=== PATIENT | male | born 1930 | race Caucasian/White ===

== ENCOUNTER 2021-01-11 19:23 | Inpatient (IN) | payer MEDICARE ==
[~2021-01-11] VITALS: Ht 190.5 cm; Wt 101.2 kg
--- NOTE | 2021-01-11 19:35 | NUR ---
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 PT'S BREATHING IS EVEN AND UNLABORED, SATURATION 97% ON ROOM AIR. PT SEEN AND EXAMINED BY DR AGUILAR. PT ATTACHED TO MONITOR AND PULSE OX. WILL CONTINUE TO MONITOR AND CARRY OUT MD ORDERS.
[2021-01-11] MEDS ORDERED: IV NS 0.9% 1,000 ML BAG IV ONE ×3 (20:00→21:00)
[2021-01-11 20:06] LABS: BASOPHILS # (AUTO) 0.1 K/uL (0.0-0.2); BASOPHILS % (AUTO) 0.3 % (0.0-2.0); EOSINOPHILS % (AUTO) 0.1 % (0.0-6.0); HEMATOCRIT 46 % (39-51); HEMOGLOBIN 14.8 g/dL (13.5-17.5); LYMPHOCYTES # (AUTO) 0.3 K/uL (0.8-4.8); MEAN CORPUSCULAR HGB CONC 32 g/dl (31.0-36.0); MEAN CORPUSCULAR VOLUME 92 fL (80-96); MONOCYTES # (AUTO) 0.3 K/uL (0.1-1.30); MONOCYTES % (AUTO) 1.3 % (2.0-12.0); NEUTROPHILS # (AUTO) 23.6 K/uL (1.8-8.9); NEUTROPHILS % (AUTO) 97.3 % (43.0-81.0); PLATELET COUNT (AUTO) 463 K/uL (150-450); RED BLOOD CELL COUNT(AUTO) 4.99 MIL/uL (4.5-6.0); WHITE BLOOD COUNT (AUTO) 24.3 K/uL (4.3-11.0)
[2021-01-11] MEDS ORDERED: CEFTRIAXONE 1GM BAG (ER ONLY) 0 ML IV ONE (20:25)
[2021-01-11] MEDS ORDERED: WATER FOR INJECTION,STERILE 10 ML ONE (20:27)
[2021-01-11] MEDS ORDERED: CEFTAZIDIME 1 G VIAL ONE (20:27)
[2021-01-11 20:30] LABS: ALANINE AMINOTRANSFERASE 34 U/L (12-78); ALBUMIN 2.3 g/dL (3.4-5.0); ALKALINE PHOSPHATASE 133 U/L (46-116); ASPARTATE AMINOTRANSFERASE 18 U/L (15-37); BILIRUBIN,DIRECT 0.2 mg/dL (0.0-0.2); BILIRUBIN,TOTAL 0.5 mg/dL (0.2-1.0); CARBON DIOXIDE 12 mmol/L (21-32); CHLORIDE 94 mmol/L (98-107); CREATININE 4.2 mg/dL (0.6-1.3); SODIUM SERUM 130 mmol/L (136-145); TOTAL PROTEIN, SERUM 7.2 g/dL (6.4-8.2); UREA NITROGEN, BLOOD 69 mg/dL (7-18)
[2021-01-11] MEDS ORDERED: CEFTAZIDIME 1 G in IV D5W 50 ML IV ONE (20:30)
--- NOTE | 2021-01-11 20:30 | NUR ---
CXR TAKEN AT BEDSIDE.
[2021-01-11 20:31] LABS: GLUCOSE 552 mg/dL (74-106); POTASSIUM 6.6 mmol/L (3.5-5.1)
--- NOTE | 2021-01-11 20:35 | NUR ---
COVID SWAB COLLECTED AND SENT TO LAB
[2021-01-11] MEDS ORDERED: LIDOCAINE 2% JEL UROJET 10 ML MM ONE (20:39)
[2021-01-11] MEDS ORDERED: SODIUM BICARBONATE SYR 50 MEQ/50 ML DISP.SYRIN ONE (20:59)
[2021-01-11] MEDS ORDERED: SODIUM POLYSTYRENE SULFONATE 15 G/60 ML BOTTLE ONE (20:59)
[2021-01-11] MEDS ORDERED: SODIUM POLYSTYRENE SULFONATE 15 G/60 ML BOTTLE PO ONE (21:00)
[2021-01-11] MEDS ORDERED: INSULIN REGULAR, HUMAN 100 UNIT/ML 10 ML VIAL ONE (21:00)
[2021-01-11] MEDS ORDERED: INSULIN REGULAR, HUMAN 100 UNIT/ML 10 ML VIAL IV ONE (21:00)
[2021-01-11] MEDS ORDERED: SODIUM BICARBONATE SYR 50 MEQ/50 ML DISP.SYRIN IV ONE (21:00)
--- NOTE | 2021-01-11 21:00 | NUR ---
ORELLANA CATHETER 16FR INSERTED, URINE DRAINED IMMEDIATELY, NOTED 300 ML CLOUDY, YELLOW OUTPUT
--- NOTE | 2021-01-11 21:01 | NUR ---
URINE COLLECTED AND SENT TO LAB
--- NOTE | 2021-01-11 21:27 | NUR ---
DR. TIWARI PAGED PER ER ORDER.
[2021-01-11 21:50] LABS: BILIRUBIN,URINE NEGATIVE (NEGATIVE); COLOR,URINE YELLOW (YELLOW); LEUKOCYTE ESTERASE ,URINE MODERATE (NEGATIVE); NITRITE, URINE NEGATIVE (NEGATIVE); PROTEIN,URINE 30 mg/dl (NEGATIVE); UGLUCOSE >=1000 mg/dL (NEGATIVE); UROBILINOGEN,URINE 0.2 EU/dL (0.2)
[2021-01-11 21:55] LABS: RBC,URINE 51-80 /HPF (0-2); WBC,URINE TOO NUMEROUS TO COUN /HPF (0-3)
[2021-01-11 21:56] LABS: BACTERIA,URINE Moderate /HPF (None Seen); SQUAMOUS EPITHELIAL CELL,UR Few /HPF (None Seen)
--- NOTE | 2021-01-11 22:00 | NUR ---
ESTABLISHED IV LINE AT RAC 20G, AND RHAND 20G. PATENT AND FLUSHING WELL. Addendum: 01/11/21 at 2205 by SIERRA CORRECT TIME IV LINE ESTABLISHED: 1939
--- NOTE | 2021-01-11 22:05 | NUR ---
ICU 259
[2021-01-11] MEDS ORDERED: ONDANSETRON HCL/PF 4 MG/2 ML VIAL IVP PRN (22:30)
[2021-01-11] MEDS ORDERED: Z GUARD REMEDY 2 OZ OINT TP PRN (22:30)
[2021-01-11] MEDS ORDERED: MAG HYDROX/AL HYDROX/SIMETH 30 ML UDC PO PRN (22:30)
[2021-01-11] MEDS ORDERED: ZOLPIDEM TARTRATE 5 MG TABLET PO PRN (22:30)
[2021-01-11] MEDS ORDERED: MAGNESIUM HYDROXIDE 30 ML UDC PO PRN (22:30)
[2021-01-11] MEDS ORDERED: ACETAMINOPHEN 325 MG TABLET PO PRN (22:30)
[2021-01-11] MEDS ORDERED: DEXTROSE 50%-WATER 50 ML DISP.SYRIN IV PRN (22:30)
--- NOTE | 2021-01-11 22:35 | NUR ---
TELEPHONE CALL TO PT'S SON KENDALL ADAMS REGARDING PT'S HOME EMDICATIONS, STATED HE WILL SEND THEM OVER. PROVIDED NUMBER TO SEND IT TO
[2021-01-11] MEDS ORDERED: CEFTRIAXONE 1 G VIAL ONE (22:38)
--- NOTE | 2021-01-11 22:40 | NUR ---
REPORT GIVEN TO SURGICAL ASSIST RENEE FOR JUDY
--- NOTE | 2021-01-11 22:45 | NUR ---
RN/ICU-ADMITTED THIS 89 Y/O MALE FROM ER BY SILVIA, ACCOMPANIED BY ER STAFF PER ACLS PROTOCOL. NURSING FOCUS:INFECTION R/T DIAGNOSIS OF SEPSIS ,UTI. ROUTINE ICU ADMISSION CARE INITIATED.PT. AWAKE, ALERT, EXPRESSIVE OF NEEDS. PT. IS VERY HARD OF HEARING. DENIES PAIN OR DISCOMFORT. EKG ST W/ HR-126/MIN. HR-136/89. EUPNEIC. ON ROOM AIR, SATS-95%. AFEBRILE.PT. IS A FULL CODE.
--- NOTE | 2021-01-11 22:45 | NUR ---
PT TRANSFERRED TO ICU ROOM 259 ACCOMPANIED BY RN AND EMT IN STABLE CONDITION. LATEST VS HR 107, BP 104/56, O2 SAT 96% ON ROOM AIR.
[2021-01-11 23:00] VITALS: BP 136/89
[2021-01-11 23:04] LABS: ALBUMIN 1.8 g/dL (3.4-5.0); BILIRUBIN,DIRECT 0.1 mg/dL (0.0-0.2); BILIRUBIN,TOTAL 0.3 mg/dL (0.2-1.0); TOTAL PROTEIN, SERUM 5.7 g/dL (6.4-8.2)
[2021-01-11] MEDS: IV NS 0.9% 1,000 ML IV SCH (23:10)
[2021-01-11] MEDS: CEFTRIAXONE 1 G in IV D5W 50 ML IV SCH (23:10)
[2021-01-12] VITALS (26 sets, daily range): BP systolic 76–144; BP diastolic 48–86
--- NOTE | 2021-01-12 | NUR ---
RN/ICU-PT. REMAINS STABLE, NOT IN ANY PAIN OR DISTRESS.REPORT GIVEN TO ERVIN COLLINS.
--- NOTE | 2021-01-12 01:02 | NUR ---
RECEIVED PATIENT IN BED, ALERT AND ORIENTED X3, ABLE TO MAKE NEEDS KNOWN. HAD ONE LARGE BM AT THIS TIME. KEPT CLEAN AND DRY. TURNED AND REPOSITIONED. CALL LIGHT WITHIN REACH. ALL NEEDS ANTICIPATED.
[2021-01-12 02:14] LABS: BASOPHILS # (AUTO) 0.1 K/uL (0.0-0.2); BASOPHILS % (AUTO) 0.6 % (0.0-2.0); EOSINOPHILS % (AUTO) 0.1 % (0.0-6.0); HEMATOCRIT 37 % (39-51); HEMOGLOBIN 12.3 g/dL (13.5-17.5); LYMPHOCYTES # (AUTO) 0.4 K/uL (0.8-4.8); LYMPHOCYTES % (AUTO) 2.1 % (20.0-44.0); MEAN CORPUSCULAR HGB CONC 34 g/dl (31.0-36.0); MEAN CORPUSCULAR VOLUME 90 fL (80-96); NEUTROPHILS # (AUTO) 17.9 K/uL (1.8-8.9); NEUTROPHILS % (AUTO) 92.2 % (43.0-81.0); PLATELET COUNT (AUTO) 331 K/uL (150-450); RED BLOOD CELL COUNT(AUTO) 4.08 MIL/uL (4.5-6.0); WHITE BLOOD COUNT (AUTO) 19.4 K/uL (4.3-11.0)
[2021-01-12 02:27] LABS: CALCIUM, SERUM 7.7 mg/dL (8.5-10.1); CARBON DIOXIDE 21 mmol/L (21-32); CHLORIDE 103 mmol/L (98-107); CREATININE 3.8 mg/dL (0.6-1.3); MAGNESIUM 2.4 mg/dL (1.8-2.4); PHOSPHORUS 4.2 mg/dL (2.5-4.9); SODIUM SERUM 136 mmol/L (136-145); UREA NITROGEN, BLOOD 70 mg/dL (7-18)
[2021-01-12 02:31] LABS: CHOLESTEROL 99 mg/dL (<200); HDL CHOLESTEROL 15 mg/dL (40-60); LDL 54 mg/dL (0-99); TRIGLYCERIDES 144 mg/dL (30-150)
[2021-01-12] MEDS ORDERED: METF-440 PO (02:36)
[2021-01-12] MEDS ORDERED: METO25TA4 PO (02:36)
[2021-01-12] MEDS ORDERED: EMPA25TA PO (02:36)
[2021-01-12] MEDS ORDERED: LORA10TA68 PO (02:36)
[2021-01-12] MEDS ORDERED: CEPH500T PO (02:36)
[2021-01-12 03:01] LABS: GLUCOSE 395 mg/dL (74-106)
[2021-01-12 03:19] LABS: BAND % (MANUAL) 6 % (0.0-5.0); BASOPHILS % (MANUAL) 0 % (0.0-2.0); EOSINOPHILS % (MANUAL) 0 % (0-4); LYMPHOCYTES % (MANUAL) 2 % (16-48); MONOCYTES % (MANUAL) 4 % (0-11.0); NEUTROPHILS % (MANUAL) 88 (42-76)
--- NOTE | 2021-01-12 05:42 | NUR ---
NOTIFIED DR. TIWARI LAB GLUCOSE 395, LACTIC ACID 2.3, TROPONIN .357, PROCAL 45.28, AND POTASSIUM 6.0, WITH NO NEW ORDERS, TO CONTINUE CURRENT PLAN OF CARE.
--- NOTE | 2021-01-12 07:13 | NUR ---
RN NOTE PATIENT IN BED RESTING. ON ROOM AIR, NO SOB NOTED. ALL NEEDS ATTENDED PROMPTLY. ORELLANA CATH OUTPUT OF 810CC HEMATURIA WITH CLOTS. TURNED AND REPOSITIONED. BED LOCKED AND IN LOWEST POSITION. CALL LIGHT WITHIN REACH. ENDORSED TO AM SHIFT.
--- NOTE | 2021-01-12 07:30 | NUR ---
PUBLIC SPEAKING TEACHER OPENING NOTES Patient received in bed on room air with 02 saturation of 99%. Patient did not c/o pain or discomfort. No s/s of distress. Verduzco cath in place and noted with hematuria. Fluids encouraged as bruno. IV fluids running at 100 cc/hour to right ac. Will continue to monitor. Call light with in reach.
[2021-01-12] MEDS: INSULIN REGULAR, HUMAN 100 UNIT/ML 3 ML VIAL SQ PRN ×4 (07:46→21:28)
[2021-01-12] MEDS: BLOOD SUGAR DIAGNOSTIC 1 EACH STRIP VI SCH ×4 (07:49→21:28)
[2021-01-12] MEDS: IV NS 0.9% 1,000 ML IV SCH ×2 (08:42→18:50)
--- NOTE | 2021-01-12 09:00 | NUR ---
Patient seen by Dr Starr. ABG done and results relayed to .
[2021-01-12 09:47] LABS: ABG BASE EXCESS -2.7 mmol/L; ABG OXYGEN SATURATION 97.4 % (92.0-98.5); ABG PH 7.448 (7.350-7.450); ABG PO2 90.1 mmHg (75.0-100.0); AaDO2 23.7 mmHg; COHb 0.3 % (0.5-1.5); MetHb 0.2 % (0.0-1.5); O2Hb 96.9 % (94.0-97.0); SITE, ABG Right Radial; VENT MODE, BG ROOM AIR
[2021-01-12] MEDS ORDERED: SODIUM POLYSTYRENE SULFONATE 15 G/60 ML BOTTLE PO ONE (10:30)
[2021-01-12] MEDS: HEPARIN SODIUM, PORCINE 5000 UNITS/1 ML VIAL SQ SCH ×2 (11:11→21:26)
[2021-01-12 11:29] LABS: CALCIUM, SERUM 7.4 mg/dL (8.5-10.1); CARBON DIOXIDE 24 mmol/L (21-32); CHLORIDE 104 mmol/L (98-107); CREATININE 3.1 mg/dL (0.6-1.3); POTASSIUM 4.9 mmol/L (3.5-5.1); SODIUM SERUM 137 mmol/L (136-145); UREA NITROGEN, BLOOD 62 mg/dL (7-18)
[2021-01-12] MEDS ORDERED: Calcium Gluconate 1GM/10ML 4.65 MEQ in IV D5W 50 ML IV ONE (11:30)
[2021-01-12 11:42] LABS: GLUCOSE 357 mg/dL (74-106)
[2021-01-12 11:48] LABS: PROSTATE SPECIFIC ANTIGEN SCR 8.87 ng/mL (0.00-4.00)
[2021-01-12] MEDS ORDERED: MAG HYDROX/AL HYDROX/SIMETH 30 ML UDC PO PRN (17:30)
--- NOTE | 2021-01-12 19:40 | NUR ---
METAL FINISH INSPECTOR OPENING NOTE Patient received in bed, A/O X3-4 on room air with 02 saturation of 99%. Patient denies pain or discomfort. Verduzco cath in place draining to gravity with noted hematuria. IV fluids running at 100 ml/hour through (R) AC 20G, patent and flushed. Sinus tachycardia on telemonitoring. Per morning shift RN, echo to possibly be completed tonight or tomorrow morning. No acute distress noted at this time.
[2021-01-12] MEDS: INSULIN GLARGINE, 100 UNIT/ML CARTRIDGE SQ SCH (21:27)
--- NOTE | 2021-01-12 21:40 | NUR ---
RN NOTE POC GLUCOSE LEVEL TAKEN, 178 MG/DL, 3 UNITS REGULAR INSULIN GIVEN PER SLIDING SCALE
[2021-01-12] MEDS: CEFTRIAXONE 1 G in IV D5W 50 ML IV SCH (23:13)
[2021-01-13] VITALS (14 sets, daily range): BP systolic 122–169; BP diastolic 54–113
[2021-01-13 02:04] LABS: BASOPHILS # (AUTO) 0.2 K/uL (0.0-0.2); EOSINOPHILS % (AUTO) 2.7 % (0.0-6.0); HEMATOCRIT 41 % (39-51); HEMOGLOBIN 13.5 g/dL (13.5-17.5); LYMPHOCYTES # (AUTO) 0.8 K/uL (0.8-4.8); LYMPHOCYTES % (AUTO) 5.5 % (20.0-44.0); MEAN CORPUSCULAR HGB CONC 33 g/dl (31.0-36.0); MEAN CORPUSCULAR VOLUME 89 fL (80-96); MONOCYTES # (AUTO) 0.9 K/uL (0.1-1.30); MONOCYTES % (AUTO) 6.4 % (2.0-12.0); NEUTROPHILS # (AUTO) 12.4 K/uL (1.8-8.9); NEUTROPHILS % (AUTO) 84.4 % (43.0-81.0); PLATELET COUNT (AUTO) 393 K/uL (150-450); RED BLOOD CELL COUNT(AUTO) 4.55 MIL/uL (4.5-6.0); WHITE BLOOD COUNT (AUTO) 14.7 K/uL (4.3-11.0)
[2021-01-13 02:37] LABS: CALCIUM, SERUM 8.2 mg/dL (8.5-10.1); CARBON DIOXIDE 24 mmol/L (21-32); CHLORIDE 106 mmol/L (98-107); CREATININE 2.5 mg/dL (0.6-1.3); GLUCOSE 196 mg/dL (74-106); PHOSPHORUS 3.4 mg/dL (2.5-4.9); POTASSIUM 4.9 mmol/L (3.5-5.1); SODIUM SERUM 140 mmol/L (136-145); UREA NITROGEN, BLOOD 49 mg/dL (7-18)
[2021-01-13] MEDS: IV NS 0.9% 1,000 ML IV SCH ×2 (04:36→16:17)
--- NOTE | 2021-01-13 07:16 | NUR ---
CORD CUTTER CLOSING NOTE Patient in bed, A/O X3-4 on room air with 02 saturation of 98%. Patient denies pain or discomfort. Verduzco cath in place draining to gravity with pink tinged clear urine. IV fluids running at 100 ml/hour through (R) AC 20G, patent and flushed. Sinus tachycardia on telemonitoring. All orders and medications administered through shift. Pt kept clean and dry. No acute distress noted at this time. Endorsed to morning shift RN
[2021-01-13] MEDS: BLOOD SUGAR DIAGNOSTIC 1 EACH STRIP VI SCH ×4 (07:28→21:44)
--- NOTE | 2021-01-13 07:30 | NUR ---
TIMBER GIRDLER OPENING NOTES Patient received in bed on room air with 02 saturation of 96%.Patient noted to be sinus tachy on cardiac rehab nurse but free of any s/sx. Patient did not c/o pain or discomfort. No s/s of distress. Verduzco cath in place and noted with clear yellow urine after gag writer flushed after receiving report. Fluids encouraged as bruno. Iv to right ac noted to be leaking upon flushing. IV fluids to left wrist running at 100 cc/hour. HOB kept elevated. DANYELL Fagan made aware regarding patient's bp readings with no new orders at this time. Will continue to monitor. Call light with in reach. Bed is in lowest and locked position.
[2021-01-13] MEDS: INSULIN REGULAR, HUMAN 100 UNIT/ML 3 ML VIAL SQ PRN ×3 (07:31→16:38)
[2021-01-13] MEDS: HEPARIN SODIUM, PORCINE 5000 UNITS/1 ML VIAL SQ SCH (09:19)
--- NOTE | 2021-01-13 10:02 | NUR ---
patient recieved to room 101 from icu skin w/d color good resp unlabored no sob noted telemetry shows ST 130'S no sob noted call light with in reach patient encouraged use of call light to make all needs known will continue to assess and evaluate
--- NOTE | 2021-01-13 10:02 | NUR ---
Patient transferred to TELE floor with tele monitor on bed side. Report given to charge nurse. Patient in stable condition with no s/s of respiratory distress. No c/o pain or discomfort. Verduzco cath intact and hanging to gravity with sediments but improvement noted from yesterday. Patient left in good stable condition.
--- NOTE | 2021-01-13 12:00 | NUR ---
vitals taken and recorded set up for lunch tray with eaten good call light with in reach
[2021-01-13] MEDS ORDERED: AMIODARONE 150 MG in IV D5W 100 ML IV ONE (14:30)
[2021-01-13] MEDS ORDERED: AMIODARONE 900 MG in IV D5W 482 ML IV PRN (14:30)
[2021-01-13] MEDS: AMIODARONE 450 MG in IV D5W 241 ML IV PRN ×2 (15:07→21:19)
--- NOTE | 2021-01-13 15:07 | NUR ---
ammidarone drip started at 1mg/hr after given bolus as ordered will continue to assess and evaluate
[2021-01-13] MEDS: METOPROLOL TARTRATE 25 MG TABLET PO SCH ×2 (16:15→21:11)
[2021-01-13] MEDS: APIXABAN 2.5 MG TABLET PO SCH ×2 (16:17→21:12)
--- NOTE | 2021-01-13 17:00 | NUR ---
no signs of distress noted call light with in reach
--- NOTE | 2021-01-13 18:00 | NUR ---
condition unchanged from previous assessment will continue to assess and evaluate still amiodarone drip at 1mg/hr with no signs of redness or swelling noted call light with in reach hutson catheter draining well to gravity
--- NOTE | 2021-01-13 20:00 | NUR ---
Ngozi rn notes Patient received in bed a/ox3 ,pts noted with hard of hearing. On room air with 02 saturation of 98%.Patient noted to be sinus rhytm -75 on cardiac technician but free of any s/sx. no sob no distress noted no pain or discomfort. Verduzco cath in place and noted with clear yellow urine output. Fluids encouraged as bruno. Iv to left fa and left wrist intact and patent IV fluids to left wrist running at 100 cc/hour. HOB kept elevated. on amiodarone drip received at 1mcg /kg/hr continue to monitor infusing well Call light with in reach. Bed is in lowest and locked position.v/s stable afebrile .all needs attended too , will continue to monitor pts.
--- NOTE | 2021-01-13 21:00 | NUR ---
BRITTANY RN NOTES AMIODARONE DRIP TITRATED TO 0.5 MCG /KG/HR ORDERED , INFUSING WELL. NO SOB NO DISTRESS NOTED.WILL CONTINUE TO MONITOR.
[2021-01-13] MEDS: INSULIN GLARGINE, 100 UNIT/ML CARTRIDGE SQ SCH (21:42)
[2021-01-13] MEDS: *INSULIN REGULAR(HUMULIN R)HUM 100 UNIT/ML VIAL SQ PRN (21:44)
--- NOTE | 2021-01-13 22:00 | NUR ---
BRITTANY RN NOTES BLOOD SUGAR OF 190 MG/DL 22 UNITS LANTUS GIVEN ORDERED AND 3 UNITS OF REGULAR INSULIN GIVEN PER SLIDING SCALE.WILL CHECK BLOOD SUGAR AGAIN IN AM.
[2021-01-13] MEDS: CEFTRIAXONE 1 G in IV D5W 50 ML IV SCH (22:02)
[2021-01-14] VITALS: BP 133/81
[2021-01-14] MEDS: IV NS 0.9% 1,000 ML IV SCH ×3 (00:41→20:27)
[2021-01-14 04:00] VITALS: BP 120/76
[2021-01-14 06:30] LABS: BASOPHILS # (AUTO) 0.1 K/uL (0.0-0.2); BASOPHILS % (AUTO) 0.6 % (0.0-2.0); EOSINOPHILS % (AUTO) 3.8 % (0.0-6.0); HEMATOCRIT 38 % (39-51); HEMOGLOBIN 12.5 g/dL (13.5-17.5); LYMPHOCYTES # (AUTO) 1.1 K/uL (0.8-4.8); LYMPHOCYTES % (AUTO) 10.2 % (20.0-44.0); MEAN CORPUSCULAR HGB CONC 33 g/dl (31.0-36.0); MEAN CORPUSCULAR VOLUME 90 fL (80-96); MONOCYTES % (AUTO) 9.5 % (2.0-12.0); NEUTROPHILS # (AUTO) 7.9 K/uL (1.8-8.9); NEUTROPHILS % (AUTO) 75.9 % (43.0-81.0); PLATELET COUNT (AUTO) 367 K/uL (150-450); RED BLOOD CELL COUNT(AUTO) 4.21 MIL/uL (4.5-6.0); WHITE BLOOD COUNT (AUTO) 10.3 K/uL (4.3-11.0)
[2021-01-14 06:43] LABS: CALCIUM, SERUM 7.7 mg/dL (8.5-10.1); CARBON DIOXIDE 21 mmol/L (21-32); CHLORIDE 106 mmol/L (98-107); CREATININE 1.6 mg/dL (0.6-1.3); GLUCOSE 182 mg/dL (74-106); SODIUM SERUM 137 mmol/L (136-145); UREA NITROGEN, BLOOD 31 mg/dL (7-18)
--- NOTE | 2021-01-14 06:49 | NUR ---
BRITTANY RN NOTES Patient in bed, A/O X3-4 on room air with 02 saturation of 98%. Patient denies pain or discomfort. Verduzco cath in place draining to gravity clear urine. IV fluids NS running at 100 ml/hour through LEFT WRIST 20G, patent and flushed. Sinus RHYTHM on telemonitoring.ON AMIO DRIP AT 0.5 MCG /KG /HR CONNECTED TO LEF FA DUE UNTILL 3PM . All orders and medications administered through shift. Pt kept clean and dry. No acute distress noted at this time. Endorsed to morning shift RN
--- NOTE | 2021-01-14 07:30 | NUR ---
RN Opening Notes Received patient in bed A/O x 3, patient is awake and alert, TEJON but is able to verbalize needs. Patient's breathing is even and unlabored, no SOB, on r/a. Patient is on tele monitor, VS within acceptable range and denies pain at this time. Verduzco cath is intact and patent draining kia urine with sediments. IV access on Left Forearm and Left Wrist intact and patent. Patient is currently infusing Amiodarone 0.5mg/min . Call light within reach, bed at lowest position, locked with bed alarm on. Will continue to monitor patient.
[2021-01-14 08:00] VITALS: BP 138/71
[2021-01-14] MEDS: APIXABAN 2.5 MG TABLET PO SCH ×2 (08:19→21:30)
[2021-01-14] MEDS: BLOOD SUGAR DIAGNOSTIC 1 EACH STRIP VI SCH ×4 (08:19→21:31)
[2021-01-14] MEDS: INSULIN REGULAR, HUMAN 100 UNIT/ML 3 ML VIAL SQ PRN ×3 (08:21→17:35)
[2021-01-14] MEDS: METOPROLOL TARTRATE 25 MG TABLET PO SCH ×2 (08:22→21:33)
--- NOTE | 2021-01-14 09:30 | NUR ---
RN NOTES DUE MEDS GIVEN
[2021-01-14 12:00] VITALS: BP 99/72
[2021-01-14 16:00] VITALS: BP 133/76
--- NOTE | 2021-01-14 18:50 | NUR ---
RN Notes Patient comfortably resting in bed, A/O x3 awake and able to verbalize need. Patient's VS stable, no SOB on room air. Patient denies any pain/discomfort. Verduzco cath patent and intact draining kia urine and drainage bag below level of bladder. IVF infusing as ordered NS 0.9% 100ml/hr. IV access on Left arm intact and patent. All meds given as ordered. Call light within reach, bed locked and in lowest position, bed alarm on. Will endorse to incoming RN for continuity of care.
[2021-01-14 20:00] VITALS: BP 126/62
--- NOTE | 2021-01-14 20:00 | NUR ---
RN NOTE RECEIVED PT IN BED, ALERT AND ORIENTED X 4. PT WITH HEARING AID, DENIES ANY PAIN OR SOB. NO DISTRESS NOTED. IV ON LFA, PT COMPLAINED OF PAIN WHEN FLUSHED, SLIGHT REDNESS WERE NOTED, REMOVED, INSERTED NEW IV LINE 22G ON LFA. ORELLANA IN PLACE, DRAINING YELLOW URINE. ALL SAFETY IN PLACE PER PROTOCOL. WILL CONTINUE TO MONITOR.
[2021-01-14] MEDS: INSULIN GLARGINE, 100 UNIT/ML CARTRIDGE SQ SCH (21:30)
[2021-01-14] MEDS: *INSULIN REGULAR(HUMULIN R)HUM 100 UNIT/ML VIAL SQ PRN (21:32)
[2021-01-14] MEDS: TAMSULOSIN 0.4 MG CAP.SR.24H PO SCH (21:33)
[2021-01-14] MEDS: CEFTRIAXONE 1 G in IV D5W 50 ML IV SCH (21:42)
[2021-01-15] VITALS: BP 125/70
[2021-01-15 04:00] VITALS: BP 133/67
[2021-01-15 06:47] LABS: BASOPHILS # (AUTO) 0.1 K/uL (0.0-0.2); BASOPHILS % (AUTO) 0.7 % (0.0-2.0); EOSINOPHILS % (AUTO) 4.2 % (0.0-6.0); HEMATOCRIT 37 % (39-51); HEMOGLOBIN 12.6 g/dL (13.5-17.5); LYMPHOCYTES # (AUTO) 0.9 K/uL (0.8-4.8); LYMPHOCYTES % (AUTO) 10.8 % (20.0-44.0); MEAN CORPUSCULAR HGB CONC 34 g/dl (31.0-36.0); MEAN CORPUSCULAR VOLUME 89 fL (80-96); MONOCYTES # (AUTO) 0.7 K/uL (0.1-1.30); MONOCYTES % (AUTO) 8.9 % (2.0-12.0); NEUTROPHILS # (AUTO) 6.3 K/uL (1.8-8.9); NEUTROPHILS % (AUTO) 75.4 % (43.0-81.0); PLATELET COUNT (AUTO) 394 K/uL (150-450); RED BLOOD CELL COUNT(AUTO) 4.16 MIL/uL (4.5-6.0); WHITE BLOOD COUNT (AUTO) 8.4 K/uL (4.3-11.0)
[2021-01-15] MEDS: IV NS 0.9% 1,000 ML IV SCH ×2 (07:10→16:34)
--- NOTE | 2021-01-15 07:15 | NUR ---
rn closing notes pt in bed, sleeping arouses easily. not significant changes noted. pt able to make needs known, tolerating room air. no distress noted. denies pain or sob. hutson indwelling well with clear yellow urine. continue on ivf ns at 100ml/hr. all safety measures maintained. will endorse to next shift nurse for mackenzie.
--- NOTE | 2021-01-15 07:20 | NUR ---
RN Opening Notes Received patient in bed A/O x 3, patient is awake and alert, PECHANGA but is able to verbalize needs. Patient's breathing is even and unlabored, no SOB, on r/a. Patient is on tele monitor, VS within acceptable range and denies pain at this time. Verduzco cath is intact and patent draining kia urine with sediments. IV access on Left Forearm intact and patent. Call light within reach, bed at lowest position, locked with bed alarm on. Will continue to monitor patient.
[2021-01-15 07:37] LABS: CALCIUM, SERUM 7.8 mg/dL (8.5-10.1); CARBON DIOXIDE 25 mmol/L (21-32); CHLORIDE 108 mmol/L (98-107); CREATININE 1.5 mg/dL (0.6-1.3); GLUCOSE 168 mg/dL (74-106); MAGNESIUM 1.7 mg/dL (1.8-2.4); PHOSPHORUS 3.4 mg/dL (2.5-4.9); POTASSIUM 3.9 mmol/L (3.5-5.1); SODIUM SERUM 141 mmol/L (136-145); UREA NITROGEN, BLOOD 27 mg/dL (7-18)
[2021-01-15 08:00] VITALS: BP 149/83
[2021-01-15] MEDS: BLOOD SUGAR DIAGNOSTIC 1 EACH STRIP VI SCH ×4 (08:24→22:00)
[2021-01-15] MEDS: APIXABAN 2.5 MG TABLET PO SCH ×2 (08:25→21:22)
[2021-01-15] MEDS: METOPROLOL TARTRATE 25 MG TABLET PO SCH ×2 (08:26→21:56)
[2021-01-15] MEDS: *INSULIN REGULAR(HUMULIN R)HUM 100 UNIT/ML VIAL SQ PRN ×2 (08:28→22:04)
[2021-01-15] MEDS ORDERED: METOPROLOL SUCCINATE 25 MG TAB.SR.24H PO SCH (09:00)
--- NOTE | 2021-01-15 09:30 | NUR ---
RN NOTES DUE MEDS GIVEN
[2021-01-15] MEDS ORDERED: Magnesium 1GM/D5W 100ML PREMIX 100 ML IV SCH (11:00)
[2021-01-15 12:00] VITALS: BP 127/78
[2021-01-15] MEDS: INSULIN REGULAR, HUMAN 100 UNIT/ML 3 ML VIAL SQ PRN (12:40)
--- NOTE | 2021-01-15 13:04 | NUR ---
RN Notes Clarified Azithromycin dose with Pharmacist. Per Pharmacist Azithromycin dose is only 500 mg daily and to disregard 1130 am dose and to give 1230 pm dose only. Administered meds as ordered
[2021-01-15 16:00] VITALS: BP 119/53
--- NOTE | 2021-01-15 18:46 | NUR ---
RN Closing Notes Patient comfortably resting in bed, A/O x3 awake and able to verbalize need. Patient's VS stable, no SOB on room air. Patient denies any pain/discomfort. Verduzco cath patent and intact draining kia urine and drainage bag below level of bladder. IVF infusing as ordered NS 0.9% 100ml/hr. IV access on right arm intact and patent. All meds given as ordered. Call light within reach, bed locked and in lowest position, bed alarm on. Will endorse to incoming RN for continuity of care.
--- NOTE | 2021-01-15 19:20 | NUR ---
Patient is A&Ox4. No signs of distress. Is able to verbalize needs. Patient is heard of hearing -hearing aid at bedside. ST on monitor around 105bpm. Notified patient of COVID - PCR result and that he will be moved to [facility] shortly.
[2021-01-15 20:00] VITALS: BP 121/57
--- NOTE | 2021-01-15 20:00 | NUR ---
PATIENT OBSERVATION ASSISTANT OPENING NOTE RECEIVED PT AWAKE IN BED. A/0 X4. PT IS STABLE ON ROOM AIR. NO SOB OR S/S OF RESPIRATORY DISTRESS NOTED. PT ON EXTERNAL LOGISTICS ASSISTANT READING SR AT 98 BPM. PT HAS NO C/O PAIN OR DISCOMFORT AT THIS TIME. IV ACCESS IN RIGHT HAND #22, INTACT AND PATENT. ORELLANA CATH IN PLACE DRAINING CLEAR YELLOW URINE. SAFETY PRECAUTIONS MAINTAINED. BED IN LOWEST LOCKED POSITION, HOB ELEVATED, SIDE RAILS UP X2. CALL LIGHT AND TABLE WITHIN REACH. WILL CONTINUE WITH PLAN OF CARE.
--- NOTE | 2021-01-15 20:10 | NUR ---
Patient transferred to [facility] room 306-1 using ACLS protocol. All belongings transferred with patient. Report given to ERVIN Boyle.
[2021-01-15] MEDS: TAMSULOSIN 0.4 MG CAP.SR.24H PO SCH (21:34)
[2021-01-15] MEDS: INSULIN GLARGINE, 100 UNIT/ML CARTRIDGE SQ SCH (22:00)
[2021-01-15] MEDS: CEFTRIAXONE 1 G in IV D5W 50 ML IV SCH (22:09)
[2021-01-16] VITALS: BP 150/87
[2021-01-16 00:35] VITALS: BP 150/87
[2021-01-16] MEDS: IV NS 0.9% 1,000 ML IV SCH ×2 (02:48→11:41)
[2021-01-16 04:38] VITALS: BP 139/83
[2021-01-16 06:09] LABS: BASOPHILS # (AUTO) 0.1 K/uL (0.0-0.2); BASOPHILS % (AUTO) 0.9 % (0.0-2.0); EOSINOPHILS % (AUTO) 4.9 % (0.0-6.0); HEMATOCRIT 38 % (39-51); HEMOGLOBIN 12.7 g/dL (13.5-17.5); LYMPHOCYTES # (AUTO) 0.9 K/uL (0.8-4.8); LYMPHOCYTES % (AUTO) 12.1 % (20.0-44.0); MEAN CORPUSCULAR HGB CONC 33 g/dl (31.0-36.0); MEAN CORPUSCULAR VOLUME 90 fL (80-96); MONOCYTES # (AUTO) 0.7 K/uL (0.1-1.30); MONOCYTES % (AUTO) 9.3 % (2.0-12.0); NEUTROPHILS # (AUTO) 5.6 K/uL (1.8-8.9); NEUTROPHILS % (AUTO) 72.8 % (43.0-81.0); PLATELET COUNT (AUTO) 404 K/uL (150-450); RED BLOOD CELL COUNT(AUTO) 4.25 MIL/uL (4.5-6.0); WHITE BLOOD COUNT (AUTO) 7.7 K/uL (4.3-11.0)
[2021-01-16 06:24] LABS: CALCIUM, SERUM 7.6 mg/dL (8.5-10.1); CREATININE 1.3 mg/dL (0.6-1.3); MAGNESIUM 1.8 mg/dL (1.8-2.4); PHOSPHORUS 2.9 mg/dL (2.5-4.9)
[2021-01-16] MEDS: BLOOD SUGAR DIAGNOSTIC 1 EACH STRIP VI SCH ×3 (06:30→17:26)
[2021-01-16] MEDS: INSULIN REGULAR, HUMAN 100 UNIT/ML 3 ML VIAL SQ PRN (06:33)
--- NOTE | 2021-01-16 06:36 | NUR ---
PRECISION OPTICS TECHNICIAN CLOSING NOTE PT IS AWAKE IN BED. A/0 X4. PT IS STABLE ON ROOM AIR. NO SOB OR S/S OF RESPIRATORY DISTRESS NOTED. PT ON EXTERNAL BRAND SPECIALIST READING SR WITH PVC'S AT 76 BPM. PT HAS NO C/O PAIN OR DISCOMFORT AT THIS TIME. IV ACCESS IN RIGHT HAND #22, INTACT AND PATENT. ORELLANA CATH IN PLACE DRAINING CLEAR YELLOW URINE. ALL NEEDS HAVE BEEN MET. PAIN MANAGEMENT ADMINISTERED PER ORDER. SAFETY PRECAUTIONS MAINTAINED AT ALL TIMES. BED IN LOWEST LOCKED POSITION, HOB ELEVATED, SIDE RAILS UP X2. CALL LIGHT AND TABLE WITHIN REACH. WILL ENDORSE TO ONCOMING NURSE FOR JUDY.
--- NOTE | 2021-01-16 07:37 | NUR ---
SCHOOL PRINCIPAL OPENING NOTES RECEIVED PATIENT IN BED, ASLEEP, ON ROOM AIR. BREATHING IS EVEN AND UNLABORED, NO SOB NOTED. TELE MONITOR WITH A CURRENT READING OS SR WITH PVC 97BPM. NO S/S OF PAIN NOTED. IV ACCESS ON R HAND G #22 RUNNING NS @ 100 MLS/HR. ORELLANA CATH IN PLACE DRAINING CLEAR YELLOW URINE. SAFETY PRECAUTIONS IN PLACE; BED IN LOW POSITION AND LOCKED, RAILS UP X2, CALL LIGHT WITHIN REACH. WILL CONTINUE TO MONITOR PATIENT.
[2021-01-16 08:00] VITALS: BP 141/72
[2021-01-16] MEDS: METOPROLOL TARTRATE 25 MG TABLET PO SCH (08:34)
[2021-01-16] MEDS: APIXABAN 2.5 MG TABLET PO SCH (08:35)
[2021-01-16] MEDS ORDERED: INSU100I14 SQ (14:50)
[2021-01-16] MEDS ORDERED: APIX2.5T PO (14:50)
[2021-01-16] MEDS ORDERED: TAMS-12 PO (14:50)
[2021-01-16] MEDS ORDERED: INSU100I30 SQ (14:50)
[2021-01-16] MEDS ORDERED: METO25TA20 PO (14:57)
[2021-01-16 16:00] VITALS: BP 150/88
--- NOTE | 2021-01-16 18:54 | NUR ---
MS LOADER UNLOADER NOTES PATIENT DISCHARGED HOME IN MEDICALLY STABLE CONDITION. PATIENT A/O X4 ABLE TO MAKE NEEDS KNOWN. ALL DISCHARGE PAPERWORK READY AND TEACHING PROVIDED TO PATIENT AND FAMILY REGARDING PHYSICIAN ORDERS AND MEDICATIONS. PATIENT AND FAMILY VERBALIZED UNDERSTANDING. BELONGINGS ACCOUNTED FOR AND PAPERS SIGNED WELL. IV ACCESS REMOVED PRIOR PATIENT LEAVING THE FLOOR. ORELLANA REMOVED; PATIENT VOIDED. WRIST BAND REMOVED WELL. PATIENT DID NOT WANT TO COOPERATE IN ORDER TO TAKE PICTURES; HE WAS GRUMPY AND SAID HE DOESN'T WANT THE TAKEN. PATIENT LEFT THE UNIT VIA WHEELCHAIR ACCOMPANIED BY PRE PAROLE COUNSELING AIDE AND FAMILY. LEFT THE HOSPITAL IN A PRIVATE CAR.
== END 2021-01-16 18:01 | disposition home or self-care (01) | DRG 871 ==
LOC: ER 19:26 → ICU 22:17 → TELE1 01-13 09:55 → TELE-TD 01-13 13:59 → TELE1 01-14 17:05 → TELE 01-15 20:06 → MED 01-16 10:07
PROVIDERS: ADMIT Family Medicine; ATTEND Nurse Practitioner Acute Care
DX: A41.9 Sepsis, unspecified organism (principal); N17.0 Acute kidney failure with tubular necrosis; E43 Unspecified severe protein-calorie malnutrition; I21.A1 Myocardial infarction type 2; R65.21 Severe sepsis with septic shock; E87.1 Hypo-osmolality and hyponatremia; E87.2 Acidosis; D68.59 Other primary thrombophilia; N13.6 Pyonephrosis; E87.5 Hyperkalemia; B96.20 Unspecified Escherichia coli [E. coli] as the cause of diseases classified elsewhere; E11.65 Type 2 diabetes mellitus with hyperglycemia; H91.10 Presbycusis, unspecified ear; I48.91 Unspecified atrial fibrillation; Z20.822 Contact with and (suspected) exposure to COVID-19; D47.3 Essential (hemorrhagic) thrombocythemia; E86.1 Hypovolemia; I12.9 Hypertensive chronic kidney disease with stage 1 through stage 4 chronic kidney disease, or unspecified chronic kidney disease; N18.9 Chronic kidney disease, unspecified; R74.8 Abnormal levels of other serum enzymes; E88.09 Other disorders of plasma-protein metabolism, not elsewhere classified; E11.29 Type 2 diabetes mellitus with other diabetic kidney complication; R31.9 Hematuria, unspecified; N28.1 Cyst of kidney, acquired; I70.0 Atherosclerosis of aorta; I95.9 Hypotension, unspecified; Z79.84 Long term (current) use of oral hypoglycemic drugs
CPT/HCPCS: 36415; 36600; 71045-TC; 76770-TC; 80048-TC; 80061-TC; 80076-TC; 81001; 82962-TC; 83605-TC; 83735-TC; 84100-TC; 84153-TC; 84154-TC; 84484-TC; 85025-TC; 85730-TC; 87040-TC; 87081-TC; 87086-TC; 87186-TC; 93307-TC; C9803; G0378; J0282; J0610; J0696; J0713; J1644; J1815; J3475; J3490; J7030; J7060